=== PATIENT | male | born 1960 | race Hispanic/Latino ===

== ENCOUNTER 2020-01-01 17:22 | Inpatient (IN) | payer BC ==
[~2020-01-01] VITALS: Ht 175.3 cm; Wt 89.0 kg
[2020-01-01 18:22] LABS: BASOPHILS % 0.1 % (0.0-1.0); HEMOGLOBIN 14.4 g/dL (14.0-18.0); LYMPHOCYTES # (AUTO) 0.7 (1.0-3.2); LYMPHOCYTES % 7.9 % (18.0-39.1); MEAN CORPUSCULAR HEMOGLOBIN 30.6 pg (28-32); MEAN CORPUSCULAR HGB CONC 34.3 g/dL (31-35); MEAN CORPUSCULAR VOLUME 89.4 fL (81-99); MONOCYTES # (AUTO) 0.4 (0.2-0.8); NEUTROPHILS # (AUTO) 7.7 (2.1-6.9); NEUTROPHILS % 87.8 % (38.7-80.0); PLATELET COUNT 224 x10e3/uL (140-360); RED CELL DISTRIBUTION WIDTH 12.2 % (11.7-14.4)
[2020-01-01 18:34] LABS: INR 0.96; PROTHROMBIN TIME 13.4 seconds (11.9-14.5)
[2020-01-01 18:43] LABS: ALANINE AMINOTRANSFERASE 120 IU/L (0-55); ALBUMIN 3.1 g/dL (3.5-5.0); ALBUMIN/GLOBULIN RATIO 0.6 (0.8-2.0); ALKALINE PHOSPHATASE 462 IU/L (40-150); ANION GAP 14.6 mmol/L (8-16); BLOOD UREA NITROGEN 19 mg/dL (7-26); BUN/CREATININE RATIO 20 (6-25); CALCIUM 9.3 mg/dL (8.4-10.2); CARBON DIOXIDE 23 mmol/L (22-29); CHLORIDE 101 mmol/L (98-107); CREATINE KINASE 43 IU/L (30-200); CREATININE, SERUM 0.96 mg/dL (0.72-1.25); EST GLOMERULAR FILTRATION RATE > 60 ML/MIN (60-); GLUCOSE 109 mg/dL (74-118); MAGNESIUM 2.1 MG/DL (1.3-2.1); POTASSIUM 3.6 mmol/L (3.5-5.1); SODIUM 135 mmol/L (136-145)
--- NOTE | 2020-01-01 19:17 | Diagnostic Imaging Report ---
EXAMINATION: CHEST SINGLE (PORTABLE) INDICATION: ^SOB ^[id number] ^1845 ^Y. COMPARISON: None FINDINGS: AP view TUBES and LINES: None. LUNGS: Lungs are well inflated. Multiple bilateral patchy consolidations could represent multifocal pneumonia, ARDS or pulmonary edema. PLEURA: No pleural effusion or pneumothorax. HEART AND MEDIASTINUM: The cardiomediastinal silhouette is unremarkable. BONES AND SOFT TISSUES: No acute osseous lesion. Soft tissues are unremarkable. UPPER ABDOMEN: No free air under the diaphragm. IMPRESSION: Multiple bilateral patchy consolidations could represent multifocal pneumonia, ARDS or pulmonary edema. Signed by: Austin Headley MD on 01/01/2020 7:14 PM
--- NOTE | 2020-01-01 20:12 | Diagnostic Imaging Report ---
EXAM: CT Chest WITHOUT contrast INDICATION: rule out pneumonia vs pleual effusion COMPARISON: None TECHNIQUE: Chest was scanned utilizing a multidetector helical scanner from the lung apex through the level of the adrenal glands without administration of IV contrast. Absence of intravenous contrast decreases sensitivity for detection of lymphadenopathy and vascular pathology. Coronal and sagittal reformations were obtained. Routine protocol was performed. IV CONTRAST: None COMPLICATIONS: None RADIATION DOSE: Total DLP: 452.76 mGy*cm Estimated effective dose: (DLP x 0.014 x size factor) mSv CTDIvol has been reviewed. It is below the limits set by the Radiation Protocol Committee (RPC). FINDINGS: LINES/ TUBES: None. LUNGS AND AIRWAYS: Multiple patchy consolidations are seen in the lungs suggestive of multifocal pneumonia. There is trace bilateral pleural effusions with associated atelectasis greater on the right. Airways are normal. HEART AND MEDIASTINUM: The thyroid gland is normal. Prominent bilateral hilar lymph nodes are likely reactive. The heart is normal in size.. There is no pericardial effusion. UPPER ABDOMEN: Unremarkable. BONES: There are degenerative changes in the thoracic spine. SOFT TISSUES: Unremarkable. IMPRESSION: Multiple patchy consolidations in the lungs suggestive of multifocal pneumonia Signed by: Austin Headley MD on 01/01/2020 8:10 PM
[2020-01-01] MEDS ORDERED: AZITHROMYCIN 500MG/SOD CHL 0.9% 250ML BAG IV SCH (21:00)
--- OUTSIDE RECORDS SUMMARY | 2020-01-01 21:06 | XMS REPORT ---
Author Author [facility] Address Unknown Phone Unavailable Care Team Providers Care Car Body Mechanic Name Role Phone Philomena CURIEL Unavailable Unavailable Problems This patient has no known problems. Allergies, Adverse Reactions, Alerts This patient has no known allergies or adverse reactions. Medications This patient has no known medications. Results Test Description Test Time Test Comments Text Results Atomic Results Result Comments CT CHEST WO 2020-01-01 20:03:00 [place] [address] Patient Name: VINAY ROSENTHAL MR #: [id number] : 1960 Age/Sex: 59/M Req #: [id number] [facility] Physician: Ordered by: CLINT CAMPOS LABORATORY MANAGER Report #: [id number] Location: ER Room/Bed: Procedure: [id number] CT/CT CHEST WO Exam Date: 01/01/20 Exam Time: 1929 REPORT STATUS: Signed EXAM: CT Chest WITHOUT contrast INDICATION: rule out pneumonia vs pleual effusion COMPARISON: None TECHNIQUE: Chest was scanned utilizing a multidetector helical scanner from the lung apex through the level of the adrenal glands without administration of IV contrast. Absence of intravenous contrast decreases sensitivity for detection of lymphadenopathy and vascular pathology. Coronal and sagittal reformations were obtained. Routine protocol was performed. IV CONTRAST: None COMPLICATIONS: None RADIATION DOSE: Total DLP: 452.76 mGy*cm Estimated effective dose: (DLP x 0.014 x size factor) mSv CTDIvol has been reviewed. It is below the limits set by the Radiation Protocol Committee (RPC). FINDINGS: LINES/ TUBES: None. LUNGS AND AIRWAYS: Multiple patchy consolidations are seen in the lungs suggestive of multifocal pneumonia. There is trace bilateral pleural effusions with associated atelectasis greater on the right. Airways are normal. HEART AND MEDIASTINUM: The thyroid gland is normal. Prominent bilateral hilar lymph nodes are likely reactive. The heart is normal in size.. There is no pericardial effusion. UPPER ABDOMEN: Unremarkable. BONES: There are degenerative changes in the thoracic spine. SOFT TISSUES: Unremarkable. IMPRESSION: Multiple patchy consolidations in the lungs suggestive of multifocal pneumonia Signed by: Austin Little MD on 01/01/2020 8:10 PM Dictated By: AUSTIN LITTLE MD 09 Transcribed By: MITUL on 01/01/202009 COPY TO: CLINT CAMPOS LABORATORY MANAGER CHEST SINGLE (PORTABLE) 2020-01-01 19:13:00 [place] [address] Patient Name: VINAY ROSENTHAL MR #: [id number] : 1960 Age/Sex: 59/M Req #: [id number] Adm Physician: Ordered by: CLINT CAMPOS LABORATORY MANAGER Report #: [id number] Location: ER Room/Bed: Procedure: [id number] DX/CHEST SINGLE (PORTABLE) Exam Date: 01/01/20 Exam Time: 1844 REPORT STATUS: Signed EXAMINATION: CHEST SINGLE (PORTABLE) INDICATION: SOB [id number] 1845 Y. COMPARISON: None FINDINGS: AP view TUBES and LINES: None. LUNGS: Lungs are well inflated. Multiple bilateral patchy consolidations could represent multifocal pneumonia, ARDS or pulmonary edema. PLEURA: No pleural effusion or pneumothorax. HEART AND MEDIASTINUM: The cardiomediastinal silhouette is unremarkable. BONES AND SOFT TISSUES: No acute osseous lesion. Soft tissues are unremarkable. UPPER ABDOMEN: No free air under the diaphragm. IMPRESSION: Multiple bilateral patchy consolidations could represent multifocal pneumonia, ARDS or pulmonary edema. Signed by: Austin Little MD on 01/01/2020 7:14 PM Dictated By: AUSTIN LITTLE MD 13 Transcribed By: MITUL on 01/01/201913 COPY TO: CLINT CAMPOS NP
[2020-01-01] MEDS ORDERED: CEFEPIME HCL 2 GM/SOD CHL 0.9% 100 ML BAG IV SCH (22:00)
[2020-01-01] MEDS ORDERED: TRAMADOL HCL 50 MG TAB PO ONE (22:15)
[2020-01-01] MEDS: ACETAMINOPHEN 325 MG TAB PO PRN (22:25)
[2020-01-01] MEDS: CEFEPIME 2 GM/NS 0.9% 100 ML 100 ML IV SCH (22:25)
[2020-01-01] MEDS: SODIUM CHLORIDE 0.9% 1000ML 1,000 ML IV SCH (22:25)
[2020-01-01] MEDS: ALBUTEROL SULF 0.083% NEB SOLN 3 ML NEB NEB SCH (23:00)
[2020-01-01 23:01] LABS: CLARITY,URINE CLOUDY (CLEAR); COLOR,URINE YELLOW (YELLOW)
[2020-01-01 23:02] LABS: BACTERIA,URINE MANY /HPF; BILIRUBIN,URINE SMALL (NEGATIVE); KETONES,URINE 2+ (NEGATIVE); LEUKOCYTE ESTERASE ,URINE NEGATIVE (NEGATIVE); NITRITE,URINE NEGATIVE (NEGATIVE); PROTEIN,URINE DIPSTICK 2+ (NEGATIVE); URINE UROBILINOGEN 1 mg/dL (0.2 - 1)
[2020-01-01 23:03] LABS: EPITHELIAL CELLS,URINE MODERATE /LPF; MUCUS,URINE MODERATE (RARE)
[2020-01-02] MEDS: IPRATROPIUM BROMIDE 0.02% 2.5 ML NEB NEB SCH ×4 (01:00→19:00)
[2020-01-02] MEDS: AZITHROMYCIN 500MG/NS 250 ML 250 ML IV SCH ×2 (01:30→20:50)
[2020-01-02] MEDS: ALBUTEROL SULF 0.083% NEB SOLN 3 ML NEB NEB SCH ×6 (03:00→23:15)
[2020-01-02] MEDS: SODIUM CHLORIDE 0.9% 1000ML 1,000 ML IV SCH (06:13)
[2020-01-02 06:14] LABS: BASOPHILS % 0.2 % (0.0-1.0); EOSINOPHILS % 0.2 % (0.0-6.0); HEMATOCRIT 36.1 % (38.2-49.6); HEMOGLOBIN 12.2 g/dL (14.0-18.0); LYMPHOCYTES % 15.7 % (18.0-39.1); MEAN CORPUSCULAR HEMOGLOBIN 30.3 pg (28-32); MEAN CORPUSCULAR HGB CONC 33.8 g/dL (31-35); MEAN CORPUSCULAR VOLUME 89.8 fL (81-99); MONOCYTES # (AUTO) 0.3 (0.2-0.8); MONOCYTES % 5.2 % (4.4-11.3); NEUTROPHILS # (AUTO) 4.8 (2.1-6.9); NEUTROPHILS % 78.2 % (38.7-80.0); PLATELET COUNT 183 x10e3/uL (140-360); RED BLOOD COUNT 4.02 x10e6/uL (4.3-5.7); RED CELL DISTRIBUTION WIDTH 12.3 % (11.7-14.4)
[2020-01-02] MEDS: CEFEPIME 2 GM/NS 0.9% 100 ML 100 ML IV SCH ×3 (06:21→22:29)
[2020-01-02 06:37] LABS: CREATINE KINASE MB 0.6 ng/mL (0-5.0)
[2020-01-02 06:56] LABS: ALANINE AMINOTRANSFERASE 84 IU/L (0-55); ALBUMIN 2.4 g/dL (3.5-5.0); ALBUMIN/GLOBULIN RATIO 0.5 (0.8-2.0); ALKALINE PHOSPHATASE 355 IU/L (40-150); ANION GAP 8.7 mmol/L (8-16); BLOOD UREA NITROGEN 20 mg/dL (7-26); BUN/CREATININE RATIO 28 (6-25); CALCIUM 8.4 mg/dL (8.4-10.2); CARBON DIOXIDE 24 mmol/L (22-29); CHLORIDE 109 mmol/L (98-107); CREATININE, SERUM 0.72 mg/dL (0.72-1.25); EST GLOMERULAR FILTRATION RATE > 60 ML/MIN (60-); GLUCOSE 101 mg/dL (74-118); POTASSIUM 3.7 mmol/L (3.5-5.1); SODIUM 138 mmol/L (136-145)
--- NOTE | 2020-01-02 07:09 | NUR ---
report was given to nir alvarez
--- NOTE | 2020-01-02 10:20 | NUR ---
Patient wanting to know when he would be moved to hospital room educated patient that we are still awaiting for a inpatient hospital bed to become available. I stressed to patient that he is still receiving the same level of care and all of his inpatient orders are being completed however, he is still in emergency room. Patient verbalized understanding.
[2020-01-02] MEDS: ACETAMINOPHEN 325 MG TAB PO PRN ×2 (10:35→20:51)
--- NOTE | 2020-01-02 12:37 | History and Physical ---
PCP: Dr. Cabrera at [facility]. CHIEF COMPLAINT: Shortness of breath, body aches, and cough. HISTORY OF PRESENT ILLNESS: This is a 59-year-old male with past medical history of high cholesterol, presented with generalized weakness, generalized body aches, cough, shortness of breath, and subjective fever. He reported had similar symptoms two weeks ago, saw his PCP and was given antibiotics. He does not remember the name, but the symptoms continued to worsen and did not improve. So he presented to the ER for further evaluation. He denies any nausea, vomiting, diaphoresis, chest pain, hemoptysis, or weight loss. BNP was less than 10. In ER, imaging showed multiple bilateral patchy consolidation, which could represent multifocal pneumonia. PAST MEDICAL HISTORY: High cholesterol. PAST SURGICAL HISTORY: He reports cholecystectomy. FAMILY MEDICAL HISTORY: He reports father has high blood pressure. Does not know of mother's medical history. SOCIAL HISTORY: He denies any tobacco or illicit drug use, but reports occasional alcohol use. ALLERGIES: HE IS ALLERGIC TO PENICILLIN. REVIEW OF SYSTEMS: GENERAL: Body aches, fatigue, and subjective fever. HEENT: No head trauma. LUNGS: Decreased breath sounds, cough. CARDIOVASCULAR: No chest pain. GI: No vomiting, abdominal pain, or diarrhea. NEURO: No dizziness. Reports generalized weakness. MUSCULOSKELETAL: No edema. SKIN: Dry. PHYSICAL EXAMINATION: VITAL SIGNS: Temperature 97.5, pulse 75, respirations 18, blood pressure 116/77, and pulse ox is 98% on 3 L of oxygen. GENERAL: Fatigue, generalized weakness. HEENT: Normocephalic and atraumatic. NECK: Supple. LUNGS: Decreased breath sounds with some wheezing. CARDIOVASCULAR: Regular rate and rhythm. GI: Soft and nontender. NEUROLOGIC: Alert, awake, and oriented x3. MUSCULOSKELETAL: Moves all extremities. SKIN: Dry. PSYCH: Calm. LABORATORY DATA: WBC is 6.10, hemoglobin 12.2, hematocrit 36.1, and platelet 183. Sodium 138, potassium 3.7, chloride 109, BUN is 20, creatinine is 0.72, and estimated GFR is greater than 60. Magnesium 2.1. AST 56, ALT 84, and alkaline phosphate 355. CK 45. Troponin x2, 0.005, negative. BNP less than 10. Total protein 6.8, albumin 2.4, and globulin to 4.4. PT 13.4, INR 0.96, and APTT 34. Urine is cloudy with negative nitrites, negative leukocyte esterase, 6 to 10 wbc's, and bacteria. MICROBIOLOGY: Urine and blood cultures pending. RADIOGRAPHIC DATA: Chest x-ray and CT chest shows multiple patchy consolidation in the lungs suggestive of multifocal pneumonia. IMPRESSION: 1. Multifocal pneumonia. He was started on azithromycin and cefepime, and continue nebs. Blood culture and urine culture pending. Continue antibiotics. 2. Elevated LFTs. He denies history of cirrhosis. We will continue to monitor. We will check acute hepatitis panel. 3. Deep vein thrombosis prophylaxis. On Lovenox. PLAN: To continue IV antibiotics and nebs, await on cultures. Dictated by FLAVIO Pierce Nichol Aguirre MD MY/MODL /[id number] Seen and examined, updated family at the bedside. Agree with the findings and plan as documented by FLAVIO Villatoro. LISET
--- NOTE | 2020-01-02 14:24 | NUR ---
PT DENIES THE USE OF HOME MEDS.
--- NOTE | 2020-01-02 14:45 | NUR ---
PT TO THE FLOOR AT THIS TIME. VITALS WNL. PT DENIES NEEDS AT THIS TIME.
[2020-01-02 15:20] VITALS: BP 114/76
[2020-01-02 15:26] LABS: CREATINE KINASE MB 0.6 ng/mL (0-5.0)
[2020-01-02 15:31] LABS: HIV 1&2 AB SCREEN NON-REACTIVE (NONREACTIVE)
[2020-01-02 16:03] VITALS: BP 114/76
[2020-01-02] MEDS: ENOXAPARIN SOD INJ 40 MG/0.4 ML SYR SC SCH (16:08)
[2020-01-02] MEDS ORDERED: LASIX20 MG PO (19:26)
[2020-01-02] MEDS ORDERED: PROAIR HFA INH8.5 GM INH (19:26)
[2020-01-02] MEDS ORDERED: COLD & COUGH E118 ML PO (19:26)
[2020-01-02] MEDS ORDERED: LEVAQUIN500 MG PO (19:26)
[2020-01-02] MEDS ORDERED: POTASSIUM CHLO10 ME1 PO (19:26)
[2020-01-02] MEDS ORDERED: SYMBICORT 16010.2 GM INH (19:26)
--- NOTE | 2020-01-02 19:38 | NUR ---
report given to ZI Guajardo
[2020-01-02 20:31] VITALS: BP 118/68
[2020-01-02] MEDS ORDERED: SODIUM CHLORIDE 0.9% 250ML 250 ML ONE (20:43)
[2020-01-02 21:00] VITALS: BP 118/68
[2020-01-03] VITALS (9 sets, daily range): BP systolic 105–142; BP diastolic 61–87
[2020-01-03] MEDS: ALBUTEROL SULF 0.083% NEB SOLN 3 ML NEB NEB SCH ×3 (03:00→11:00)
[2020-01-03] MEDS: IPRATROPIUM BROMIDE 0.02% 2.5 ML NEB NEB SCH ×2 (03:00→07:30)
[2020-01-03 05:58] LABS: ALANINE AMINOTRANSFERASE 67 IU/L (0-55); ALBUMIN 2.3 g/dL (3.5-5.0); ALBUMIN/GLOBULIN RATIO 0.5 (0.8-2.0); ALKALINE PHOSPHATASE 333 IU/L (40-150); ANION GAP 10.6 mmol/L (8-16); BLOOD UREA NITROGEN 18 mg/dL (7-26); BUN/CREATININE RATIO 23 (6-25); CALCIUM 8.4 mg/dL (8.4-10.2); CARBON DIOXIDE 24 mmol/L (22-29); CHLORIDE 110 mmol/L (98-107); CREATININE, SERUM 0.78 mg/dL (0.72-1.25); EST GLOMERULAR FILTRATION RATE > 60 ML/MIN (60-); GLUCOSE 96 mg/dL (74-118); POTASSIUM 3.6 mmol/L (3.5-5.1); SODIUM 141 mmol/L (136-145)
[2020-01-03] MEDS: CEFEPIME 2 GM/NS 0.9% 100 ML 100 ML IV SCH (06:00)
[2020-01-03] MEDS: ACETAMINOPHEN 325 MG TAB PO PRN ×3 (06:18→20:26)
--- NOTE | 2020-01-03 07:00 | NUR ---
BEDSIDE SHIFT REPORT RECEIVED FROM GEAR REPAIRER RN. PT DENIES NEEDS AT THIS TIME.
[2020-01-03 08:38] LABS: CREATINE KINASE 34 IU/L (30-200)
[2020-01-03] MEDS ORDERED: ALBUTEROL SULF 0.083% NEB SOLN 3 ML NEB NEB PRN (12:30)
[2020-01-03] MEDS ORDERED: ONDANSETRON HCL INJ 2MG/ML 2ML 2 MG/ML VIAL IV PRN (12:30)
[2020-01-03] MEDS ORDERED: LEVOFLOXACIN 500 MG TAB PO SCH (12:30)
[2020-01-03] MEDS ORDERED: IPRATROPIUM BROMIDE 0.02% 2.5 ML NEB NEB PRN (12:30)
[2020-01-03] MEDS: LEVAQUIN 500 MG PO SCH (13:16)
[2020-01-03] MEDS: ENOXAPARIN SOD INJ 40 MG/0.4 ML SYR SC SCH (16:29)
--- NOTE | 2020-01-03 19:06 | NUR ---
BSSR RECEIVED FROM DAYSHIFT RN, PATIENT SEEN AOX4, FAMILY SITTING AT BEDSIDE, SKIN WARM DRY INTACT CALL LIGHT WITHIN REACH WILL CONTINUE TO MONITOR
--- NOTE | 2020-01-03 19:21 | NUR ---
Report given to Mehran Gonzales RN
[2020-01-04] VITALS (7 sets, daily range): BP systolic 98–140; BP diastolic 57–85
[2020-01-04] MEDS: ACETAMINOPHEN 325 MG TAB PO PRN ×2 (02:22→09:45)
--- NOTE | 2020-01-04 06:55 | NUR ---
patient received from evening RN. patient sleeping in bed at this time. JENNY.
--- NOTE | 2020-01-04 07:38 | NUR ---
BSSR GIVEN TO DAYSHIFT RN, PATIENT SEEN AWAKE ALERT, NO DISTRESS NOTED, HX DX, AND PLAN OF CARE DISCUSSED WITH RN AND PATIENT, CALL LIGHT WITHIN REACH
--- NOTE | 2020-01-04 12:33 | NUR ---
Nutrition Screen Note RD Recommendation for Physician: -Continue current diet per MD. Plan of Care: RD following, monitoring for tolerance and adequacy. Ensure Compact BID. Nutrition reason for involvement: (MST) Primary Diagnose(s): Failure of out patient PMH: High cholesterol. Ht: 69 in Wt: 196 lb BMI: 29.0 kg/m2 IBW: [address] Assessment: (01/03) 59 YOM seen resting in bed. The pt was seen on NC. The pt reported a so-so appetite. The pt also reported some weight loss, he did not state how much. He denied N/V/C/D/chewing or swallowing issues as well as any food allergies. Pt was open to trying an Ensure Compact supplement. He had no other questions or concerns. Chart reviewed. Labs and meds reviewed. Pt appeared well-nourished. Pt has been completing 50-100% of his meals per meal assessment. Will continue to monitor. Current Diet: regular Malnutrition Evaluation (01/03) The patient does not meet criteria for a specified degree of malnutrition at this time. Will re-evaluate at follow-up as appropriate. Diet Education Needs Assessment: Diet education indicated, pt on regular diet. Diet Adequacy: Meeting calorie needs, Meeting protein needs Nutrition Care Level: low Signed: Emmie Cox, RENNY, LD
[2020-01-04] MEDS: LEVAQUIN 500 MG PO SCH (12:37)
--- NOTE | 2020-01-04 13:00 | NUR ---
patient ambulated in the hallway on room air. patient O2 did decrease to 88% when ambulating, but recovered quickly to 93% still on room air. Dr. Aguirre at bedside and aware of O2 saturation. Will repeat walk test after breathing treatment per Dr. Aguirre.
--- NOTE | 2020-01-04 14:49 | NUR ---
patient ambulated 25 feet after breathing treatment. O2 was at 92% on room air while ambulating. Patient okay to discharge per Dr. Aguirre.
--- NOTE | 2020-01-04 15:32 | NUR ---
Discharge instructions given to the patient and his daughter, they verbalized understanding. Patient understands to finish current prescription of Levaquin and follow up with PCP in one week.
--- NOTE | 2020-01-05 04:54 | Discharge Summary ---
FINAL DIAGNOSIS: Multifocal pneumonia failing outpatient therapy. CONSULTANTS: None. PROCEDURE/STUDIES PERFORMED: Chest CT. HISTORY: Per H and P. HOSPITAL COURSE: Initially, patient was put on cefepime and azithromycin. The patient improved with that regimen. Subsequently, we found out that he is only taken his p.o. Levaquin as an outpatient for two days. Therefore, I discontinued the cefepime and started p.o. Levaquin and monitor for another 24 hours. The patient continued to improve clinically. He does have a headache that goes away with Tylenol likely due to cough. The patient also has some dyspnea on exertion that is slowly getting better. HIV was checked, which was negative, acute hepatitis panel is still pending. The patient was told to finish his Levaquin, which he has six more pills to take and also to eat yoghurt to kill bacteria in his gut. I will give him one week work excuse. The patient will follow up with his primary care doctor in one week to determine if he needs more. The patient was seen and examined today, it took 33 minutes total to discharge patient. I have also updated his family members at the bedside in details and answered all the questions. Nyching MD ROBERTA Garza/TIM /[id number]
== END 2020-01-04 15:45 | disposition home or self-care (01) | DRG 195 ==
LOC: ER 17:22 → ERHOLD 21:03 → MED/SURG2 01-02 15:06
PROVIDERS: ADMIT Internal Medicine; ATTEND Internal Medicine
DX: J18.9 Pneumonia, unspecified organism (principal); I10 Essential (primary) hypertension; E11.9 Type 2 diabetes mellitus without complications
CPT/HCPCS: 36415; 71045; 71250; 80053; 81001; 82550; 82553; 83735; 83880; 84484; 85025; 85610; 85730; 87040; 87086; 87390; 93005; 94640; 99284; G0433; G0435; J0456; J1650; J7030; J7050

== ENCOUNTER → 2024-07-31 | Day surgery (SDC) | payer OTHER ==
[~2024-07-31] MED LIST: COLD & COUGH E118 ML PO; FINASTERIDE5 MG PO; FLOMAX0.4 MG PO; LACTATED RINGER'S 1,000 ML ONE; LASIX20 MG PO; LEVAQUIN500 MG PO; LIDOCAINE HCL 2% LOCAL INJ 5 ML SDV VIAL INJ ONE; LISINOPRIL10 MG PO; METOCLOPRAMIDE HCL 10 MG/2ML VIAL ONE; POTASSIUM CHLO10 ME1 PO; PROAIR HFA INH8.5 GM INH; PROPOFOL IV EMULSION 0 ML IV ONE; PROPOFOL IV EMULSION 10 MG/ML 20 ML VIAL ONE; PROPOFOL IV EMULSION 100 ML IV ONE; SIMVASTATIN20 MG PO; SYMBICORT 16010.2 GM INH
[2024-07-31 12:18] VITALS: TEMP 97.4
[2024-07-31 13:00] VITALS: BP 130/88; PULSE 50; RESP 16; O2SAT 97
== END | disposition home or self-care (01) ==
LOC: OR 10:12
PROVIDERS: ATTEND Internal Medicine Gastroenterology
DX: K29.70 Gastritis, unspecified, without bleeding (principal); D12.3 Benign neoplasm of transverse colon; K22.10 Ulcer of esophagus without bleeding; K22.89 Other specified disease of esophagus; K21.9 Gastro-esophageal reflux disease without esophagitis; K44.9 Diaphragmatic hernia without obstruction or gangrene; K57.30 Diverticulosis of large intestine without perforation or abscess without bleeding; K64.8 Other hemorrhoids; N40.0 Benign prostatic hyperplasia without lower urinary tract symptoms; I10 Essential (primary) hypertension; E78.5 Hyperlipidemia, unspecified; Z88.0 Allergy status to penicillin; Z01.810 Encounter for preprocedural cardiovascular examination; Z79.899 Other long term (current) drug therapy
CPT/HCPCS: 43239; 45385; 93005; J2001; J2470; J2704 ×2; J2765; J7121; 45378; J2003

== ENCOUNTER → 2024-09-28 | Day surgery (SDC) | payer OTHER ==
[~2024-09-28] MED LIST changes: -LACTATED RINGER'S 1,000 ML ONE; +PANTOPRAZOLE SO40 MG PO; -PROPOFOL IV EMULSION 0 ML IV ONE; -PROPOFOL IV EMULSION 100 ML IV ONE; +SODIUM CHLORIDE 0.9% INJ 10 ML VIAL ONE
[2024-09-28 09:35] VITALS: BP 121/72; PULSE 78; RESP 17; O2SAT 98
[2024-09-28] MEDS: LACTATED RINGER'S 1,000 ML ONE (10:39)
== END | disposition home or self-care (01) ==
LOC: OR 07:55
PROVIDERS: ATTEND Internal Medicine Gastroenterology
DX: K29.70 Gastritis, unspecified, without bleeding (principal); K25.9 Gastric ulcer, unspecified as acute or chronic, without hemorrhage or perforation; K44.9 Diaphragmatic hernia without obstruction or gangrene; K63.5 Polyp of colon; I10 Essential (primary) hypertension; E78.5 Hyperlipidemia, unspecified; N40.0 Benign prostatic hyperplasia without lower urinary tract symptoms; K21.9 Gastro-esophageal reflux disease without esophagitis; M19.90 Unspecified osteoarthritis, unspecified site; Z88.0 Allergy status to penicillin; Z01.810 Encounter for preprocedural cardiovascular examination; Z79.899 Other long term (current) drug therapy
CPT/HCPCS: 43235; 93005; J2003; J2470; J2704; J2765; J7121